=== PATIENT | male | born 1945 | race Hispanic/Latino ===

== ENCOUNTER 2017-10-20 07:04 | Observation (INO) | payer MEDICARE ==
[2017-10-17 12:04] LABS: BASOPHILS # (AUTO) 0.1 (0.0-0.1); BASOPHILS % 0.7 % (0.0-1.0); EOSINOPHILS # (AUTO) 0.3 (0.0-0.4); EOSINOPHILS % 3.3 % (0.0-6.0); HEMATOCRIT 46.2 % (38.2-49.6); HEMOGLOBIN 15.3 g/dL (14.0-18.0); LYMPHOCYTES # (AUTO) 2.2 (1.0-3.2); LYMPHOCYTES % 25.9 % (18.0-39.1); MEAN CORPUSCULAR HEMOGLOBIN 28.8 pg (28-32); MEAN CORPUSCULAR HGB CONC 33.1 g/dL (31-35); MEAN CORPUSCULAR VOLUME 86.8 fL (81-99); MONOCYTES # (AUTO) 0.8 (0.2-0.8); MONOCYTES % 8.9 % (4.4-11.3); NEUTROPHILS # (AUTO) 5.2 (2.1-6.9); PLATELET COUNT 222 x10e3/uL (140-360); RED BLOOD COUNT 5.32 x10e6/uL (4.3-5.7); RED CELL DISTRIBUTION WIDTH 13.2 % (11.7-14.4)
[2017-10-17 12:23] LABS: ANION GAP 15.5 mmol/L (8-16); BLOOD UREA NITROGEN 12 mg/dL (7-26); BUN/CREATININE RATIO 15 (6-25); CALCIUM 9.7 mg/dL (8.4-10.2); CARBON DIOXIDE 31 mmol/L (22-29); CHLORIDE 103 mmol/L (98-107); CREATININE, SERUM 0.79 mg/dL (0.72-1.25); EST GLOMERULAR FILTRATION RATE > 60 ML/MIN (60-); GLUCOSE 114 mg/dL (74-118); POTASSIUM 4.5 mmol/L (3.5-5.1); SODIUM 145 mmol/L (136-145)
--- NOTE | 2017-10-17 13:13 | Diagnostic Imaging Report ---
PROCEDURE: Frontal and lateral views of the chest. COMPARISON: None. INDICATIONS: PREOP - LEFT KNEE SX FINDINGS: Lines/tubes: None. Lungs: The lungs are well inflated and clear. There is no evidence of pneumonia or pulmonary edema. Pleura: There is no pleural effusion or pneumothorax. Heart and mediastinum: Cardiac silhouette in the upper limit of normal. Pulmonary vasculature is normal. Bones: No acute bony abnormality. IMPRESSION: 1. No acute cardiopulmonary abnormalities. Chip Valera M.D. Dictated by: Chip Valera M.D. on 10/17/2017 at 13:22 Electronically approved by: Chip Valera M.D. on 10/17/2017 at 13:22
[~2017-10-20] VITALS: Ht 180.3 cm; Wt 126.1 kg
[~2017-10-20 07:04] MED LIST: CEFAZOLIN SOD 2 GM/D5W 50ML 50 ML IV ONE; CELECOXIB 200 MG CAP ONE; COUMADIN5 MG PO; COUMADIN6 MG PO; DECARA25000 UNIT PO; DEXAMETHASONE SOD PHOS 10 MG/1 ML VIAL ONE; DILTIAZEM 24HR240 M1 PO; GABAPENTIN 300 MG CAP ONE; GLIMEPIRIDE4 MG PO; LATANOPROST2.5 ML OP; LOSARTAN POTAS100 MG PO; METFORMIN HCL1000 MG PO; METOPROLOL TART50 MG PO; POTASSIUM CHLO10 MEQ PO; ROPIVACAINE 246.25 MG, EPINEPHRINE HCL 1:1000 0.5 MG, CLONIDINE HCL 0.08 MG, KETOROLAC ... INJ ONE; SIMVASTATIN40 MG PO; XARELTO10 MG PO
--- OUTSIDE RECORDS SUMMARY | 2017-10-20 07:06 | XMS REPORT ---
Author Author [facility] Address Unknown Phone Unavailable Care Team Providers Care Ground Host/Hostess Name Role Phone MARINE LANDIS Unavailable Unavailable Problems This patient has no known problems. Allergies, Adverse Reactions, Alerts This patient has no known allergies or adverse reactions. Medications This patient has no known medications. Results Test Description Test Time Test Comments Text Results Atomic Results Result Comments CHEST 2 VIEWS [place] [address] Patient Name: PATTI WALLACE MR #: [id number] : 1945 Age/Sex: 72/M Req #: [id number] Adm Physician: Ordered by: MARINE LANDIS MD Report #: [id number] Location: OR Room/Bed: Procedure: [id number] DX/CHEST 2 VIEWS Exam Date: 10/17/17 Exam Time: 1200 REPORT STATUS: Signed PROCEDURE: Frontal and lateral views of the chest. COMPARISON: None. INDICATIONS: PREOP - LEFT KNEE SX FINDINGS: Lines/tubes: None. Lungs: The lungs are well inflated and clear. There is no evidence of pneumonia or pulmonary edema. Pleura: There is no pleural effusion or pneumothorax. Heart and mediastinum: Cardiac silhouette in the upper limit of normal. Pulmonary vasculature is normal. Bones: No acute bony abnormality. IMPRESSION : 1. No acute cardiopulmonary abnormalities. Wally Valera M.D. Dictated by: Wally Valera M.D. on 10/17/2017 at 13:22 Electronically approved by: Wally Valera M.D. on 10/17/2017 at 13:22 Dictated By: WALLY VALERA MD 1322 Transcribed By: LI on 10/17/17 1322 COPY TO: MARINE LANDIS MD
[2017-10-20] MEDS ORDERED: XARELTO10 MG PO (07:13)
[2017-10-20] MEDS ORDERED: MUPIROCIN 2% OINT 22 GM TUBE ONE (07:59)
[2017-10-20] MEDS ORDERED: TRANEXAMIC ACID 1,000 MG/10 ML ML ONE (08:00)
[2017-10-20] MEDS ORDERED: BACITRACIN 50,000 UNIT VIAL ONE (08:00)
[2017-10-20] MEDS ORDERED: ONDANSETRON HCL INJ 2 MG/ML VIAL IV PRN (10:15)
[2017-10-20] MEDS ORDERED: DIPHENHYDRAMINE HCL INJ 50 MG/ML VIAL IM/IV PRN (10:15)
[2017-10-20] MEDS ORDERED: ACETAMINOPHEN 650 MG SUPP PR PRN (10:15)
[2017-10-20] MEDS ORDERED: ZOLPIDEM TARTRATE 5 MG TAB PO PRN (10:15)
[2017-10-20] MEDS ORDERED: DOCUSATE SODIUM 100 MG CAP PO PRN (10:15)
[2017-10-20] MEDS ORDERED: HYDROCODONE/APAP 5MG-325MG TAB PO PRN (10:15)
[2017-10-20] MEDS ORDERED: PROMETHAZINE HCL (IM) 25 MG/ML VIAL INJ PRN (10:15)
[2017-10-20] MEDS ORDERED: MORPHINE SULFATE INJ 10 MG/ML ONE (10:46)
[2017-10-20] MEDS ORDERED: HYDRALAZINE HCL 20 MG/ML VIAL ONE (11:28)
[2017-10-20] MEDS: ACETAMINOPHEN 1000 MG/100 ML IV SCH ×2 (12:00→18:08)
--- NOTE | 2017-10-20 12:26 | Diagnostic Imaging Report ---
PROCEDURE: X-RAY LEFT KNEE, ONE OR TWO VIEWS COMPARISON: None. INDICATIONS:POST OP KNEE FINDINGS: Total knee prosthesis has been placed into excellent anatomic alignment without associated fracture. There is a small amount of air in the soft tissues suggestive of surgery. Multiple skin edda are present in the anterior knee. CONCLUSION: As above. Dictated by: Sheri Mcdonald M.D. on 10/20/2017 at 12:35 Electronically approved by: Sheri Mcdonald M.D. on 10/20/2017 at 12:35
[2017-10-20] MEDS ORDERED: NALOXONE HCL INJ 0.4 MG/ML AMP ONE (12:45)
[2017-10-20] MEDS ORDERED: METOPROLOL TARTRATE 50 MG TAB ONE (13:03)
[2017-10-20 13:08] LABS: ABG HCO3 24 mmol/L (23-28); ABG PCO2 42 mmHg (41-51); ABG PH 7.36 (7.31-7.41); ABG PO2 138 mmHg (80-105)
[2017-10-20] MEDS: KETOROLAC TROMETHAMINE 30 MG/ML VIAL IV PRN ×2 (13:08→23:19)
--- NOTE | 2017-10-20 13:44 | Operative Report ---
DATE OF PROCEDURE: October 20, 2017 CLAIM PROCESSOR: Bud Colin PA-C The patient was brought to the operating room for induction of anesthesia. Throughout this case, my PA's assistance was necessary for retraction of soft tissue and positioning of the extremity. This allows for efficient and technically successful execution of the operation and is considered medically necessary. PREOPERATIVE DIAGNOSIS: Osteoarthritis, left knee. POSTOPERATIVE DIAGNOSIS: Osteoarthritis, left knee. PROCEDURE: Left total knee arthroplasty. INDICATIONS: The patient is a 72-year-old gentleman with advanced arthritis of his left knee. He has failed conservative management and would like to proceed with a left total knee replacement. The risks and benefits of the procedure have been discussed. The added challenges and risk for perioperative complications due to his body mass index of over 38 have been explained. The patient states he understands and wishes to proceed. DESCRIPTION OF PROCEDURE: The patient was brought to the operating room and placed under general anesthetic. He received a regional block, prophylactic antibiotics, and tranexamic acid in the holding area. His left lower extremity was prepped and draped in a sterile manner. A preoperative time out was performed. The extremity was exsanguinated and a proximal tourniquet was inflated to 350 mmHg. An anterior approach with a medial parapatellar arthrotomy was performed. A slightly more extensile approach was needed due to the patient's body habitus. Clear synovial fluid was removed from the joint. Soft tissue releases were performed to bring the knee up into flexion with the patella everted. The cruciate ligaments were sacrificed. A [employer] posterior stabilized knee system was used throughout the case. Meniscal remnants and marginal osteophytes were removed. An extramedullary cutting guide was used to resect the proximal tibia. The tibial baseplate was a size #7. The central fin punch was impacted and attention was directed towards the distal femur. An intramedullary cutting guide was used to resect the distal femur in 6 degrees of valgus and rotation referenced off of a combination of landmarks including Whitesides line, the epicondylar axis, and the posterior condyles. The femoral component was also a size #7. Anterior and posterior cuts were made. Trial reductions were performed. A 9 mm ultra-congruent tibial insert provided good stability in both flexion and extension. The patella was resurfaced with a 35 mm x 7.5 mm patellar button. The thickness was checked before and after and was right around 22 or 23 mm. A small subchondral cyst was curetted in the central portion of the patella. Patellar tracking was noted to be concentric. The trial implants were then all removed. A 100 mL premixed pericapsular injection was then placed into the soft tissue around the knee. The knee was thoroughly irrigated with a shower-jet pulsatile lavage. The components were cemented into place using a single mix of high-viscosity PALACOS cement with gentamicin. Care was taken to remove extravasated cement. The wound was then further irrigated while the cement cured. The arthrotomy was carefully closed with interrupted #1 Ethibond. The knee was put through flexion and extension to ensure a secure closure. The skin was closed with subcuticular Vicryl and edda. A sterile bandage was applied. The patient was extubated and transported to the recovery room in stable condition. Job#: [id number] VAS
[2017-10-20] MEDS ORDERED: METOPROLOL TARTRATE 50 MG TAB PO ONE (14:00)
[2017-10-20] MEDS ORDERED: CEFAZOLIN SOD 1 GM/NS 50ML 50 ML IV SCH (14:00)
[2017-10-20] MEDS ORDERED: ASPIRIN 81 MG CHEW TAB PO ONE (14:00)
[2017-10-20 14:14] LABS: BASOPHILS % 0.3 % (0.0-1.0); EOSINOPHILS % 0.1 % (0.0-6.0); HEMATOCRIT 42.9 % (38.2-49.6); HEMOGLOBIN 14.4 g/dL (14.0-18.0); LYMPHOCYTES # (AUTO) 0.5 (1.0-3.2); LYMPHOCYTES % 3.4 % (18.0-39.1); MEAN CORPUSCULAR HEMOGLOBIN 28.4 pg (28-32); MEAN CORPUSCULAR HGB CONC 33.6 g/dL (31-35); MEAN CORPUSCULAR VOLUME 84.6 fL (81-99); MONOCYTES # (AUTO) 0.1 (0.2-0.8); MONOCYTES % 0.8 % (4.4-11.3); NEUTROPHILS # (AUTO) 14.1 (2.1-6.9); NEUTROPHILS % 94.9 % (38.7-80.0); PLATELET COUNT 216 x10e3/uL (140-360); RED BLOOD COUNT 5.07 x10e6/uL (4.3-5.7); RED CELL DISTRIBUTION WIDTH 13.2 % (11.7-14.4)
[2017-10-20 14:27] LABS: ALANINE AMINOTRANSFERASE 17 IU/L (0-55); ALBUMIN 3.9 g/dL (3.5-5.0); ALBUMIN/GLOBULIN RATIO 1.2 (0.8-2.0); ALKALINE PHOSPHATASE 91 IU/L (40-150); ANION GAP 15.2 mmol/L (8-16); BLOOD UREA NITROGEN 14 mg/dL (7-26); BUN/CREATININE RATIO 16 (6-25); CALCIUM 8.6 mg/dL (8.4-10.2); CARBON DIOXIDE 20 mmol/L (22-29); CHLORIDE 103 mmol/L (98-107); CREATINE KINASE 60 IU/L (30-200); CREATININE, SERUM 0.88 mg/dL (0.72-1.25); EST GLOMERULAR FILTRATION RATE > 60 ML/MIN (60-); GLUCOSE 270 mg/dL (74-118); POTASSIUM 4.2 mmol/L (3.5-5.1); SODIUM 134 mmol/L (136-145)
[2017-10-20 14:44] VITALS: BP 133/68
[2017-10-20 14:57] VITALS: BP 133/68
[2017-10-20] MEDS: CEFAZOLIN SOD 1 GM VIAL IV SCH (16:45)
[2017-10-20 17:00] VITALS: BP 104/65
[2017-10-20] MEDS ORDERED: WARFARIN SOD 5 MG TAB PO SCH ×2 (17:00→18:30)
[2017-10-20] MEDS: METFORMIN HCL 500 MG TAB PO SCH (17:00)
[2017-10-20] MEDS ORDERED: CELECOXIB 100 MG CAP PO SCH ×2 (17:00→21:00)
[2017-10-20] MEDS ORDERED: NON-FORMULARY MEDICATION (Metformin Hcl 1,000 MG) PO SCH (17:00)
[2017-10-20] MEDS: GLIMEPIRIDE 2 MG TAB PO SCH (17:00)
[2017-10-20] MEDS ORDERED: NON-FORMULARY MEDICATION (Glimepiride 4 MG) PO SCH (17:00)
[2017-10-20] MEDS ORDERED: LIDOCAINE HCL 2% LOCAL INJ 5 ML SDV VIAL INJ ONE (17:07)
[2017-10-20] MEDS ORDERED: ONDANSETRON HCL INJ 2 MG/ML VIAL ONE (17:07)
[2017-10-20] MEDS ORDERED: DEXAMETHASONE SOD PHOS INJ 4 MG/ML VIAL ONE (17:07)
[2017-10-20] MEDS ORDERED: ACETAMINOPHEN 1000 MG/100 ML IV ONE (17:07)
[2017-10-20] MEDS ORDERED: KETOROLAC TROMETHAMINE 30 MG/ML VIAL ONE (17:07)
[2017-10-20] MEDS ORDERED: SEVOFLURANE INHAL SOLN 250 ML PEN BTL ONE (17:07)
[2017-10-20] MEDS ORDERED: PROPOFOL IV EMULSION 10 MG/ML 20 ML VIAL ONE (17:07)
[2017-10-20] MEDS ORDERED: EPINEPHRINE HCL INJ 1 MG/ML AMP ONE (17:27)
[2017-10-20] MEDS ORDERED: BUPIVACAINE HCL 0.5% INJ 30 ML VIAL INJ ONE (17:27)
[2017-10-20] MEDS ORDERED: FENTANYL CITRATE/PF 100MCG/2 ML INJ ONE (17:30)
[2017-10-20] MEDS ORDERED: MIDAZOLAM HCL 2 MG/2 ML VIAL ONE (17:30)
[2017-10-20] MEDS ORDERED: RIVAROXABAN 10 MG TABLET PO SCH ×2 (18:30→20:00)
[2017-10-20 20:00] VITALS: BP 135/89
[2017-10-20] MEDS: CELECOXIB 200 MG CAP PO SCH (20:58)
[2017-10-20] MEDS ORDERED: LATANOPROST(OPTH) 2.5 ML BTL OP SCH (21:00)
[2017-10-20] MEDS ORDERED: SIMVASTATIN 40 MG TAB PO SCH (21:00)
[2017-10-20] MEDS: METOPROLOL TARTRATE 50 MG TAB PO SCH (21:01)
[2017-10-21] VITALS: BP 129/71
[2017-10-21] MEDS: CEFAZOLIN SOD 1 GM VIAL IV SCH ×2 (00:38→09:25)
[2017-10-21] MEDS: ACETAMINOPHEN 1000 MG/100 ML IV SCH ×2 (00:41→06:30)
[2017-10-21 04:00] VITALS: BP 127/76
[2017-10-21] MEDS: HYDROCODONE/APAP 7.5MG-325MG 1 EA TAB PO PRN ×3 (04:00→14:35)
[2017-10-21 06:55] LABS: HEMATOCRIT 37.5 % (38.2-49.6); HEMOGLOBIN 12.5 g/dL (14.0-18.0)
[2017-10-21 07:13] LABS: INR 2.16; PROTHROMBIN TIME 22.6 seconds (11.9-14.5)
[2017-10-21 08:00] VITALS: BP 143/84
[2017-10-21] MEDS ORDERED: XARELTO10 MG PO (08:12)
[2017-10-21] MEDS ORDERED: POTASSIUM CHLORIDE 10 MEQ TABCR PO SCH (09:00)
[2017-10-21] MEDS ORDERED: LOSARTAN POTASSIUM 100 MG TAB PO SCH (09:00)
[2017-10-21] MEDS: METOPROLOL TARTRATE 50 MG TAB PO SCH (09:25)
[2017-10-21] MEDS: CELECOXIB 200 MG CAP PO SCH (09:25)
[2017-10-21] MEDS: GLIMEPIRIDE 2 MG TAB PO SCH (09:25)
[2017-10-21] MEDS: METFORMIN HCL 500 MG TAB PO SCH (09:25)
[2017-10-21] MEDS ORDERED: ACETAMINOPHEN 1000 MG/100 ML IV PRN (10:15)
[2017-10-21 12:35] VITALS: BP 142/75
[2017-10-21] MEDS ORDERED: RIVAROXABAN 10 MG TABLET PO SCH (17:00)
[2017-10-21] MEDS ORDERED: WARFARIN SOD 5 MG TAB PO SCH (17:00)
--- NOTE | 2017-11-14 15:40 | Discharge Summary ---
CHIEF COMPLAINT: Left knee pain. HISTORY OF PRESENT ILLNESS: This patient is a 72-year-old male who complains of left knee pain for over 2 years. The patient states that the pain has gotten progressively worse. We have tried cortisone injections on multiple occasions with only temporary relief. He unfortunately could not take NSAIDs because he is on warfarin. He has tried Tylenol as well as physical therapy without lasting relief. X-rays are consistent with end-stage arthritis of the left knee. The options were discussed. The patient states he feels he has concerns failed conservative management. The risks and benefits of a left total knee replacement were explained. The patient states he understands and wishes to proceed. HOSPITAL COURSE: The patient underwent a left total knee replacement without complications. He was then transferred to the recovery room and the floor in stable condition. He progressed nicely with physical therapy. He remained stable throughout his hospital stay. He was able to be discharged home on postop day 1. PRINCIPAL DIAGNOSIS: Osteoarthritis of the left knee. PRINCIPAL PROCEDURE: Left total knee replacement. DISCHARGE INSTRUCTIONS: The patient was discharged home with home health and physical therapy arranged. He was to resume his home medications as directed. He was to bridge his Coumadin with Xarelto. He was instructed to follow up in our office in roughly 8 to 10 days. Dictated by Bud Colin PA-C MARINE LANDIS MD Job#: [id number]
== END 2017-10-21 15:22 | disposition home or self-care (01) ==
LOC: OR 07:04 → MED/SURG 12:12 → INTOOBSV 12:12
PROVIDERS: ADMIT Specialist; ATTEND Specialist
DX: M17.0 Bilateral primary osteoarthritis of knee (principal); E66.01 Morbid (severe) obesity due to excess calories; Z68.38 Body mass index [BMI] 38.0-38.9, adult; I48.91 Unspecified atrial fibrillation; E11.9 Type 2 diabetes mellitus without complications; R06.02 Shortness of breath; D64.9 Anemia, unspecified
CPT/HCPCS: 27447; 36415 ×3; 71046; 73560; 80048; 80053; 82550; 82553; 82805; 82948 ×2; 84484; 85014; 85018; 85025 ×2; 85610; 86850; 86900; 86920; 93005 ×2; 97110 ×2; 97116; 97161; C1713; G0378 ×2; G8978; G8979; J0171; J0360; J0690 ×2; J1100 ×2; J1885; J2001; J2250; J2270; J2310; J2405; J2795